=== PATIENT | female | born 1965 | race Caucasian/White ===

== ENCOUNTER 2016-10-29 12:21 | Outpatient (CLI) ==
[2016-10-29 13:12] LABS: BASOPHILS % (AUTO) 0.6 % (0.0-3.0); EOSINOPHILS # (AUTO) 0.2 K/ul (0.0-0.7); EOSINOPHILS % (AUTO) 3.5 % (0.0-7.0); HEMATOCRIT 40.1 % (37.0-47.0); HEMOGLOBIN 13.5 g/dl (12.0-16.0); IMMATURE GRANULOCYTE % (AUTO) 0.3 % (0.0-5.0); LYMPHOCYTES # (AUTO) 1.8 K/uL (0.60-3.4); LYMPHOCYTES % (AUTO) 26.5 (10.0-50.0); MEAN CORPUSCULAR HEMOGLOBIN 32.6 pg (27.0-31.0); MEAN CORPUSCULAR HGB CONC 33.7 (31.8-35.4); MEAN CORPUSCULAR VOLUME 96.9 fl (81.0-99.0); MONOCYTES # (AUTO) 0.4 K/uL (0.4-2.0); MONOCYTES % (AUTO) 5.5 (0-10); NEUTROPHILS # (AUTO) 4.4 K/ul (2.0-6.9); NEUTROPHILS % (AUTO) 63.6; PLATELET COUNT 251 10^3/uL (140-440); RED BLOOD COUNT 4.14 10^6/ul (4.20-5.40); WHITE BLOOD COUNT 6.87 K/ul (4.6-10.2)
[2016-10-29 14:17] LABS: ALBUMIN/GLOBULIN RATIO 1.25; ANION GAP 14.6; BILIRUBIN,DIRECT 0.29 mg/dL (0.00-0.30); BILIRUBIN,TOTAL 0.8 mg/dL (0.00-1.20); BUN/CREATININE RATIO 16.66; CALCIUM 9.5 mg/dL (8.2-10.2); CHOL/HDL RATIO 3.5 (4.5-5.5); CREATININE 0.72 mg/dL (0.60-1.30); PHOSPHORUS 3.2 mg/dL (2.5-4.9); POTASSIUM 3.6 mmol/L (3.5-5.10); TOTAL PROTEIN 7.2 g/dL (6.4-8.2); URIC ACID 4.4 mg/dL (2.4-6.0)
--- NOTE | 2016-10-29 14:26 | DI ---
EXAM: Three views of the right ankle. History: Right ankle pain. Findings: Small plantar spur. No acute fracture or dislocation. Mild polyarticular joint space na rrowing. Impression: No acute osseous abnormality
[2016-10-30 17:52] LABS: MAGNESIUM 1.9 mg/dL (1.7-2.2)
[2016-11-02 13:11] LABS: IGG P18 AB Absent (.); IGG P23 AB Absent (.); IGG P28 AB Absent (.); IGG P30 AB Absent (.); IGG P39 AB Absent (.); IGG P41 AB Present (.); IGG P45 AB Absent (.); IGG P58 AB Absent (.); IGG P66 AB Present (.); IGG P93 AB Absent (.); IGM P39 AB Absent (.); IGM P41 AB Present (.)
[2016-11-03 07:00] LABS: LYME IGG WB INTERP Negative (.); LYME IGM WB INTERP Negative (.)
== END 2016-10-29 12:22 | disposition home or self-care (01) ==
LOC: RAD 12:21
PROVIDERS: ATTEND Nurse Practitioner
DX: M25.571 Pain in right ankle and joints of right foot (principal); R10.11 Right upper quadrant pain; R10.9 Unspecified abdominal pain; R31.9 Hematuria, unspecified; W57.XXXA Bitten or stung by nonvenomous insect and other nonvenomous arthropods, initial encounter; Z85.118 Personal history of other malignant neoplasm of bronchus and lung
CPT/HCPCS: 36415; 80053; 80061; 80074; 82248; 83735; 84100; 84443; 84550; 85025; 86617; 86757; 87798

== ENCOUNTER 2016-11-11 08:52 | Outpatient (CLI) ==
--- NOTE | 2016-11-11 10:16 | CT ---
EXAM: CT of the abdomen pelvis with and without contrast History: Right upper quadrant abdominal pain. Comparison: CT abdomen pelvis 03/08/2009 Technique: Multiplanar CT images through the abdomen pelvis were obtained with and without the admi nistration of IV contrast Findings: Lung bases are free of consolidation. Subsegmental atelectasis seen within the lingula. No acute osseous abnormalities. Gallbladder is not seen. Adrenal glands are unremarkable. No peripancreatic inflammation. No connor l stones and no hydronephrosis. No ureteral calculi. 4.6 cm x 4.5 cm cystic mass of the left ovary has increased in size compared to the prior study. No bowel obstruction. No renal masses. No abnor mal enhancement of the pancreas. No focal liver or splenic lesions. Tiny fat containing umbilical hernia. No bladder wall thickening. No perirectal inflammation. Colonic diverticulosis. The appen diana is not seen. The no free air and no ascites. No perirectal inflammation. Impression: 1. No acute intra-abdominal or pelvic process. 2. Colonic diverticulosis. 3. Increasing size of left adnexal cystic mass. Recommend further evaluation with pelvic ultrasoun d.
== END 2016-11-11 08:53 | disposition home or self-care (01) ==
LOC: RAD 08:52
PROVIDERS: ATTEND Nurse Practitioner
DX: R10.11 Right upper quadrant pain (principal)

== ENCOUNTER 2017-02-11 00:02 | Emergency (ER) ==
[2017-02-11] MEDS ORDERED: PROTONIX IV IVP STA (00:22)
[2017-02-11] MEDS ORDERED: ZOFRAN 4 MG/2 ML IVP STA (00:22)
[2017-02-11] MEDS ORDERED: DILAUDID 1 MG/ML SYRINGE IVP STA (00:22)
[2017-02-11] MEDS ORDERED: SODIUM CHLORIDE 1,000 ML IV STA (00:22)
[2017-02-11 00:26] VITALS: TEMP 97.4; BMI 29.7
--- NOTE | 2017-02-11 00:26 | ED.PDOC ---
General ED Provider: Dr. ASHA CHUA Chief Complaint: Nausea/Vomiting Stated Complaint: Two week history of abdominal pain. Had a hysterectomy 2 weeks ago at [facility]. The Abdominal pain is mostly epigastric with radiation to the throat. Has been vomiting bile. Time Seen by Physician: 00:24 Information Source: Patient, Family Exam Limitations: No limitations Primary Care Provider: SANDRINE LEACH Nursing and Triage Documentation Reviewed and Agree: Yes GI Complaint Exam - Abdominal Pain Complaint/Exam Onset: Gradual Duration: 2 weeks Symptoms Are: Still present Timing: Constant Initial Severity: Severe Current Severity: Severe Location of Pain: RUQ Radiates To: Reports: Chest Character: Reports: Dull, Aching Aggravating: Reports: Food Alleviating: Reports: None Associated Signs and Symptoms: Reports: Nausea, Vomiting AAA Risk Factors: Reports: None Cardiac Risk Factors: Reports: None Ectopic Risk Factors: Reports: None Ovarian Torsion Risk Factors: Reports: None Surgical Obstruction Risk Factors: Reports: Bilious emesis, Colicky abdominal pain Related Surgical History: Reports: Cholecystectomy, Appendectomy, CRYSTAL, BSO Review of Systems - Review Of Systems Constitutional: Reports: No symptoms Eyes: Reports: No symptoms Ears, Nose, Mouth, Throat: Reports: No symptoms Respiratory: Reports: No symptoms Cardiac: Reports: No symptoms GI: Reports: Abdominal pain, Nausea, Vomiting : Reports: No symptoms Musculoskeletal: Reports: No symptoms Skin: Reports: No symptoms Neurological: Reports: Anxiety Endocrine: Reports: No symptoms Hematologic/Lymphatic: Reports: No symptoms All Other Systems: Reviewed and Negative Past Medical History - Past Medical History Previously Healthy: Yes Endocrine: Reports: None Cardiovascular: Reports: None Respiratory: Reports: None Hematological: Reports: None Gastrointestinal: Reports: None Genitourinary: Reports: None Neuro/Psych: Reports: None Musculoskeletal: Reports: None Cancer: Reports: Lung, Other (uterine/ ovarina ) - Surgical History General Surgical History: Reports: Hysterectomy, , Appendectomy, Cholecystectomy, Other (Partial Lung resection) - Family History Family History: Reports: None - Social History Smoking Status: Former smoker Alcohol Screening: None Lives: With family Physical Exam - Physical Exam Appearance: Ill-appearing Ill-appearing: Moderate Pain Distress: Severe ENT: Nose normal, Oropharynx normal Neck: Supple Respiratory: Airway patent, Breath sounds equal, Breath sounds diminished, Respirations nonlabored Cardiovascular: Pulses normal, No rub, No murmur, Tachycardia GI/: Soft, Bowel sounds normal, Tender Musculoskeletal: Normal strength, ROM intact, No edema, No calf tenderness Skin: Warm, Dry, Normal color Neurological: Sensation intact Psychiatric: Anxious Interpretation - Radiology Interpretation Radiology Interpretation By: Radiologist Radiology Results: No acute changes Exam Interpreted: CT Scan Re-Evaluation - Re-Evaluation Time of Re-Evaluation: 02:07 Status: Improved Pain Level: better Additional Comments: No more nausea or vomiting. Critical Care Note - Critical Care Note Total Time (mins): 35 Course - Course Hematology/Chemistry: 02/11/17 00:35 02/11/17 00:35 Orders, Labs, Meds: Lab Review 02/11/17 02/11/17 02/11/17 00:35 00:35 00:35 WBC 7.61 RBC 3.98 L Hgb 13.1 Hct 38.1 MCV 95.7 MCH 32.9 H MCHC 34.4 RDW Coeff of Mahnaz 12.3 Plt Count 232 Immature Gran % (Auto) 0.1 Neut % (Auto) 85.1 Lymph % (Auto) 11.4 [place] % (Auto) 3.2 Eos % (Auto) 0.1 Baso % (Auto) 0.1 Immature Gran # (Auto) 0.0 Neut # 6.5 Lymph # 0.9 [place] # 0.2 L Eos # 0.0 Baso # 0.0 Sodium 142 Potassium 3.3 L Chloride 108 H Carbon Dioxide 26 Anion Gap 11.3 BUN 10 Creatinine 0.67 Estimated GFR (MDRD) 92.00 BUN/Creatinine Ratio 14.92 Glucose 145 H Lactic Acid Calcium 9.2 Total Bilirubin 0.37 AST 13 L ALT 20 Alkaline Phosphatase 32 L Total Protein 6.4 Albumin 3.5 Globulin 2.9 Albumin/Globulin Ratio 1.21 Amylase 36 Lipase 10 Procalcitonin < 0.05 Urine Color Urine Clarity Urine pH Ur Specific Jerome Urine Protein Urine Glucose (UA) Urine Ketones Urine Blood Urine Nitrite Urine Bilirubin Urine Urobilinogen Ur Leukocyte Esterase Urine Microscopic RBC Ur Squamous Epith Cells Urine Bacteria Urine Mucus 02/11/17 02/11/17 00:35 01:10 WBC RBC Hgb Hct MCV MCH MCHC RDW Coeff of Mahnaz Plt Count Immature Gran % (Auto) Neut % (Auto) Lymph % (Auto) [place] % (Auto) Eos % (Auto) Baso % (Auto) Immature Gran # (Auto) Neut # Lymph # [place] # Eos # Baso # Sodium Potassium Chloride Carbon Dioxide Anion Gap BUN Creatinine Estimated GFR (MDRD) BUN/Creatinine Ratio Glucose Lactic Acid 9.1 Calcium Total Bilirubin AST ALT Alkaline Phosphatase Total Protein Albumin Globulin Albumin/Globulin Ratio Amylase Lipase Procalcitonin Urine Color Yellow Urine Clarity Clear Urine pH 6.5 Ur Specific Jerome 1.025 Urine Protein Trace Urine Glucose (UA) Negative Urine Ketones 2+ Urine Blood Trace-intact Urine Nitrite Negative Urine Bilirubin Negative Urine Urobilinogen 0.2 Ur Leukocyte Esterase Negative Urine Microscopic RBC 0-2 Ur Squamous Epith Cells 0-2 Urine Bacteria Trace Urine Mucus 1+ Orders Category Date Time Status ED IV/MEDIPORT/POWERPORT .ONCE EMERGENCY 02/11/17 00:22 Active AMYLASE Stat LAB 02/11/17 00:35 Completed BLOOD CULTURE Stat LAB 02/11/17 00:28 Received CBC W/ AUTO DIFF Stat LAB 02/11/17 00:35 Completed COMPREHENSIVE METABOLIC PANEL Stat LAB 02/11/17 00:35 Completed LACTIC ACID Stat LAB 02/11/17 00:35 Completed LIPASE Stat LAB 02/11/17 00:35 Completed PROCALCITONIN Stat LAB 02/11/17 00:35 Completed URINALYSIS C & S IF INDICATED Stat LAB 02/11/17 01:10 Completed 0.9 % Sodium Chloride [Saline Flush] MEDS 02/11/17 00:22 Ordered 1 syr IVF PRN PRN Hydromorphone HCl [Dilaudid 1 mg/ml Syringe] MEDS 02/11/17 00:22 Discontinued 1 mg IVP ONCE STA Ondansetron HCl/Pf [Zofran 4 mg/2 ml] MEDS 02/11/17 00:22 Discontinued 4 mg IVP ONCE STA Pantoprazole Sodium [Protonix IV] MEDS 02/11/17 00:22 Discontinued 40 mg IVP ONCE STA Sodium Chloride 0.9% [Sodium Chloride] 1,000 ml MEDS 02/11/17 00:[address] ABD/PEL WO RENAL STONE PROT Stat RADS 02/11/17 00:22 Completed Medications Generic Name Dose Route Start Last Admin Trade Name Freq PRN Reason Stop Dose Admin Sodium Chloride 1 syr 02/11/17 00:22 02/11/17 00:49 Saline Flush IVF 1 syr PRN PRN Administration To flush IV Discontinued Medications Generic Name Dose Route Start Last Admin Trade Name Freq PRN Reason Stop Dose Admin Hydromorphone HCl 1 mg 02/11/17 00:22 02/11/17 00:47 Dilaudid 1 Mg/Ml Syringe IVP 02/11/17 00:23 1 mg ONCE STA Administration Sodium Chloride 1,000 mls @ 1,000 mls/hr 02/11/17 00:22 02/11/17 00:42 Sodium Chloride IV 02/11/17 01:21 1,000 mls/hr BOLUS STA Administration Ondansetron HCl 4 mg 02/11/17 00:22 02/11/17 00:46 Zofran 4 Mg/2 Ml IVP 02/11/17 00:23 4 mg ONCE STA Administration Pantoprazole Sodium 40 mg 02/11/17 00:22 02/11/17 00:50 Protonix Iv IVP 02/11/17 00:23 40 mg ONCE STA Administration Vital Signs: Temp Pulse Resp BP Pulse Ox 02/11/17 00:03 97.4 F L 114 H 32 H 102/79 98 Departure - Departure Time of Disposition: 02:03 Disposition: HOME SELF-CARE Discharge Problem: Nausea, Vomiting Abdominal pain Qualifiers: Abdominal location: epigastric Qualified Code(s): R10.13 - Epigastric pain Instructions: Abdominal Pain (ED) Condition: Stable Pt referred to PMD for follow-up: Yes Additional Instructions: Take medications as prescribed Follow up with your surgeon soon. Prescriptions: Hydrocodone/Acetaminophen [[place] 5-325 Tablet] 1 tab PO Q6HR PRN #20 tablet PRN Reason: PAIN Ondansetron HCl [Zofran Tab] 4 mg PO Q8H PRN #14 tablet PRN Reason: Nausea / Vomiting Allergies/Adverse Reactions: Allergies codeine Adverse Reaction (Verified 02/11/17 00:23) Nausea ibuprofen Adverse Reaction (Verified 02/11/17 00:23) Nausea morphine Adverse Reaction (Verified 02/11/17 00:23) Nausea oxycodone [From Percocet] Adverse Reaction (Verified 02/11/17 00:23) Rash Home Medications: Ambulatory Orders Hydrocodone/Acetaminophen [Hydrocodon-Acetaminophen 5-325] 1 each PO BEDTIME PRN 02/11/17 Hydrocodone/Acetaminophen [[place] 5-325 Tablet] 1 tab PO Q6HR PRN #20 tablet 09/23 Lactobacillus Combo No.10 [Probiotic] 1 each PO DAILY 02/11/17 Omeprazole [Prilosec] 20 mg PO QDAC 02/11/17 Ondansetron HCl [Zofran Tab] 4 mg PO Q8H PRN #14 tablet 02/11/17 Ondansetron HCl [Zofran] 4 mg PO BID PRN 02/11/17 Disposition Discussed With: Patient, Family
[2017-02-11 00:43] LABS: BASOPHILS % (AUTO) 0.1 % (0.0-3.0); EOSINOPHILS % (AUTO) 0.1 % (0.0-7.0); HEMATOCRIT 38.1 % (37.0-47.0); HEMOGLOBIN 13.1 g/dl (12.0-16.0); IMMATURE GRANULOCYTE % (AUTO) 0.1 % (0.0-5.0); LYMPHOCYTES # (AUTO) 0.9 K/uL (0.60-3.4); LYMPHOCYTES % (AUTO) 11.4 (10.0-50.0); MEAN CORPUSCULAR HEMOGLOBIN 32.9 pg (27.0-31.0); MEAN CORPUSCULAR HGB CONC 34.4 (31.8-35.4); MEAN CORPUSCULAR VOLUME 95.7 fl (81.0-99.0); MONOCYTES # (AUTO) 0.2 K/uL (0.4-2.0); MONOCYTES % (AUTO) 3.2 (0-10); NEUTROPHILS # (AUTO) 6.5 K/ul (2.0-6.9); NEUTROPHILS % (AUTO) 85.1; PLATELET COUNT 232 10^3/uL (140-440); RED BLOOD COUNT 3.98 10^6/ul (4.20-5.40); WHITE BLOOD COUNT 7.61 K/ul (4.6-10.2)
[2017-02-11 00:55] VITALS: BP 102/79
[2017-02-11 01:15] LABS: ALBUMIN 3.5 g/dL (3.4-5.0); ALBUMIN/GLOBULIN RATIO 1.21; ANION GAP 11.3; BILIRUBIN,TOTAL 0.37 mg/dL (0.00-1.20); BUN/CREATININE RATIO 14.92; CALCIUM 9.2 mg/dL (8.2-10.2); CREATININE 0.67 mg/dL (0.60-1.30); POTASSIUM 3.3 mmol/L (3.5-5.10); TOTAL PROTEIN 6.4 g/dL (6.4-8.2)
[2017-02-11 01:39] LABS: BILIRUBIN,URINE Negative (NEGATIVE); KETONES,URINE 2+ (NEGATIVE); LEUKOCYTE ESTERASE ,URINE Negative (NEGATIVE); NITRITE,URINE Negative (NEGATIVE); PH,URINE 6.5 (5-9); PROTEIN,URINE Trace (NEGATIVE); URINE, BLOOD Trace-intact (NEGATIVE)
[2017-02-11 01:40] LABS: ADD URINE MICROSCOPIC YES
--- NOTE | 2017-02-11 01:40 | CT ---
EXAM: CT of the abdomen and pelvis without contrast. HISTORY: Abdominal pain with nausea and vomiting. Status post hysterectomy 2 weeks ago. Surgical hi story includes cholecystectomy and appendectomy. PROCEDURE: Contiguous axial CT images of the abdomen and pelvis without contrast with coronal and sa gittal reformats. FINDINGS: The liver is normal in appearance. The gallbladder is surgically absent. The pancreas, sp helen, adrenal glands and kidneys are normal in appearance. The abdominal aorta is normal in appearanc e. There is diverticulosis of the colon with no evidence of diverticulitis. There are two small foci of free air in the right anterior pelvis. No free fluid in the abdomen or pelvis. The bladder is adeq uately filled with no abnormality identified. The uterus is surgically absent with minimal stranding of the adjacent fat consistent with the patient's surgical history. There are degenerative changes in the spine. There is a small umbilical hernia containing only fat. Impression: Status post hysterectomy with minimal stranding of the adjacent fat and minimal free air in the right pelvis as described, consistent with the patient's surgical history. Diverticulosis of the colon. Small umbilical hernia as described. Cholecystectomy.
[2017-02-11 01:45] LABS: BACTERIA,URINE TRACE (NOT PRESENT)
== END 2017-02-11 02:18 | disposition home or self-care (01) ==
LOC: ED 00:02
DX: R11.2 Nausea with vomiting, unspecified (principal); R10.13 Epigastric pain; Z98.890 Other specified postprocedural states
CPT/HCPCS: 36415; 74176; 80053; 81001; 82150; 83605; 83690; 84145; 85025; 87040; 96361; 96374; 96375; 99283